=== PATIENT | female | born 1965 | race Caucasian/White ===

== ENCOUNTER 2024-10-07 05:41 | Inpatient (IN) ==
[2024-10-07 06:16] LABS: Basophils # (auto) 0.05 K/uL (0.00-0.20); Basophils % (auto) 0.8 %; Eosinophils # (auto) 0.13 K/uL (0.00-0.50); Hematocrit (blood only) 41.1 % (37.0-47.0); Hemoglobin 14.8 g/dl (12.0-16.0); Immature Granulocytes # (auto) 0.02 K/uL (0.01-0.20); Immature Granulocytes % (auto) 0.3 %; Lymphocytes # (auto) 1.16 K/uL (1.20-3.40); Lymphocytes % (auto) 18.2 %; Mean Corpuscular Hemoglobin 31.5 pg (25.0-34.0); Mean Corpuscular Volume 87.4 fL (80.0-100.0); Mean Platelet Volume 10.6 fL (9.4-12.4); Monocytes # (auto) 0.53 K/uL (0.11-0.59); Monocytes % (auto) 8.3 %; Neutrophils # (auto) 4.47 K/uL (1.40-6.50); Neutrophils % (auto) 70.4 %; Platelet Count 216 K/uL (130-400); RDW Coefficient of Variation 12.2 % (11.5-14.5); RDW Standard Deviation 39.2 fL (36.4-46.3); White Blood Count 6.36 K/ul (4.8-10.8)
[2024-10-07 06:46] LABS: Alanine Aminotransferase 133 U/L (7-52); Albumin Globulin Ratio 2.6 (0.9-2); Albumin Level 4.6 gm/dl (3.4-5.0); Alkaline Phosphatase 68 U/L (34-104); Aspartate Aminotransferase 170 U/L (13-39); BUN Creatinine Ratio 21.4 (10-20); Bilirubin,Total 0.9 mg/dl (0.2-1.0); Blood Urea Nitrogen 15 mg/dl (6-23); Calcium 9.9 mg/dl (8.6-10.3); Carbon Dioxide > 45 mmol/L (21-32); Chloride 91 mmol/L (98-107); Creatinine Clr Calc Pharmacy 77.9 ml/min; Globulin 1.8 gm/dl (2.5-4.0); Glucose 137 mg/dl (70-99(Fasting)); Magnesium 2.2 mg/dl (1.7-2.4); Potassium 2.4 mmol/L (3.5-5.1); Sodium 144 mmol/L (136-145); Thyroid Stimulating Hormone 1.899 uIu/ml (0.300-4.500); Total Protein 6.4 gm/dl (6.0-8.3); Troponin I High Sensitivity 9.5 pg/ml (0-14)
--- NOTE | 2024-10-07 06:47 | Emergency Department Note ---
Impression & Plan Metabolic alkalosis, Hypokalemia, Hypercapnia, Hypochloremic alkalosis, Adverse effect of thiazide diuretic, Muscle cramps, Rhabdomyolysis ED Provider Note NAME: NANCY THOMAS AGE: 58 SEX: F : 1965 ARRIVES VIA: Walk-In INFORMANT: Patient ED PROVIDER(S): Herbert Romero MD CHIEF COMPLAINT: Low potassium, referred. PLAN: Disposition: Admit MEDICAL DECISION MAKING: The patient is a pleasant 58-year-old woman with past medical history of hypertension who presents to the emergency department via walk-in accompanied by her who is a physician for evaluation of low potassium which was identified on outpatient blood work drawn yesterday but a critical value was communicated to her PCP office around 4 AM where they contact her to present to emergency department immediately for severely low potassium that their lab had measured below 2.0. Patient reports she had blood work performed to assess for ongoing constant muscle aches and pain over the past several weeks in the setting of starting chlorthalidone a month ago. Patient denies any chest pain, shortness of breath, palpitations. Denies any recent fevers, chills, cough, congestion, GI or symptoms. She denies history of lung disease. Of note, the patient did arrive to emergency department during time of high volume, acuity and prolonged emergency department waiting times. Critical pathways initiated. On evaluation the patient is in no acute distress, afebrile with blood pressure in the 150/80s and vital signs otherwise stable. She appears clinically dry. Reflexes are 2+. There is no clonus. EKG demonstrates NSR with nonspecific ST and T wave abnormalities without overt ST elevation or depression. QTc 438, QRS 100. WBC, H/H and platelets within normal limits. Chemistry with significant metabolic alkalosis with bicarbonate >45. Chloride is low at 91 and so suggestive of hypochloremic metabolic alkalosis with associated hypokalemia of 2.4 likely related to the patient's chlorthalidone. Sodium is normal 144. Magnesium and calcium are normal at 2.2 and 9.9, respectively. AST and ALT are mildly elevated 170 and 133, respectively with LFTs otherwise normal. High- sensitivity troponin 9.5, within normal limits. TSH within normal limits. VBG, CPK and repeat BMP ordered and pending. Given the patient's significant metabolic/ill electrolyte abnormalities they do agree with plan for admission for further management. Case was reviewed with pharmacy. Agrees with initiation of IV fluid hydration and KCl repletion at this time. Case was d/w Dr. Cast [facility] hospitalist who will evaluate the patient for admission. Repeat BMP with bicarbonate detectable 44. Potassium 2.3. CPK subsequently returned elevated at 2400. Admitting team aware. Further management per admitting team. Triage Nursing notes reviewed and agree them. Prior/external medical records reviewed Vital Signs: reviewed Differential diagnosis: Infection, dehydration, metabolic abnormality, hypo/hyperglycemia, electrolyte disturbance, anemia, hypoxia, cardiac sources, intracerebral event, toxicologic, neurologic, as well as other pathologies. ER treatment provided: See below. Diagnostics interpreted by me: ECG: Normal sinus rhythm, 70 bpm, no ectopy, ST and T wave abnormality, no overt ST elevation or depression, QTc 438, QRS 100. Cardiac Monitoring: An order for continuous cardiac monitoring was placed and demonstrated Normal sinus rhythm, 70 bpm, no ectopy. Laboratory studies: See below Imaging studies: See below Consultation(s): Dr. Cast [facility] [place] hospitalist. HPI: The patient is a pleasant 58-year-old woman with past medical history of hypertension who presents to the emergency department via walk-in accompanied by her who is a physician for evaluation of low potassium which was identified on outpatient blood work drawn yesterday but a critical value was communicated to her PCP office around 4 AM where they contact her to present to emergency department immediately for severely low potassium that their lab had measured below 2.0. Patient reports she had blood work performed to assess for ongoing constant muscle aches and pain over the past several weeks in the setting of starting chlorthalidone a month ago. Patient denies any chest pain, shortness of breath, palpitations. Denies any recent fevers, chills, cough, congestion, GI or symptoms. She denies history of lung disease. ROS: See above HPI for pertinent positives & negatives. A total of 10 systems reviewed and were otherwise negative. VITALS:See Below PHYSICAL EXAMINATION: GENERAL: Awake, alert, well-appearing, in no distress HENT: Normocephalic, atraumatic. Oropharynx with dry mucous membranes and otherwise unremarkable. EYES: Normal conjunctiva. Sclera non-icteric. NECK: Supple. No nuchal rigidity. FROM. No JVD. RESPIRATORY: Clear to auscultation. CARDIAC: Regular rate, normal rhythm. Extremities warm and well perfused. Pulses equal. ABDOMEN: Soft, non-distended. No tenderness to palpation. No rebound or guarding. No masses. MUSCULOSKELETAL: Chest examination reveals no tenderness. The back is symmetrical on inspection without obvious abnormality. There is no CVA tenderness to palpation. No joint edema. LOWER EXTREMITIES: Calves are equal size bilaterally and non-tender. No edema. No discoloration. NEURO: Normal sensorium. No sensory or motor deficits noted. DTRs 2+. No clonus. SKIN: No rash or jaundice noted. Herbert Romero MD Past Med/Surg History Problem List (Updated 10/07/24 @ 16:06 by Herbert Romero MD) Rhabdomyolysis (Acute) Muscle cramps (Acute) Adverse effect of thiazide diuretic (Acute) Hypochloremic alkalosis (Acute) Metabolic alkalosis (Acute) Transaminitis Anxiety Hypertension Hypercapnia (Acute) Hypokalemia (Acute) Colon cancer screening Encounter for pre-operative examination Encounter for screening colonoscopy Medical History Spondylisthesis lumbar Surgical History History of colonoscopy (~10/2019) History of hysterectomy vaginal Fusion of spine lumbar area S/P foot surgery left foot (tendon transfer) with screws Family History Other No family history of adverse response to anesthesia Social History Smoking Status: Never smoker Second Hand Exposure: No; Do You Dip or Chew Tobacco: No; Hx Alcohol Use: Yes Alcohol type: wine Hx Substance Use: No Preferred Language: Malay Communication Ability: Effective Copy Messenger Required: No Beliefs That Will Affect Care: None Current Living Situation: Spouse Other Information That Helps Us Care for You: No Feels Safe at Home: Yes Safety Concerns: Feels Safe At This Time Assistive Devices: None Allergies Allergies Allergy/AdvReac Type Severity Reaction Status Date / Time egg yolk Allergy Intermediate Hives Verified 12/10/21 07:33 Sulfa (Sulfonamide Allergy Intermediate Hives Verified 12/10/21 07:33 Antibiotics) Home Meds Home Medications Medication Instructions Recorded Confirmed amitriptyline 10 mg tablet 20 mg PO HS 10/18/19 10/07/24 escitalopram oxalate 20 mg tablet 20 mg PO QAM 10/18/19 12/17/21 (Lexapro) [id number] 0.4 mg-calcium 162 1 tab PO QAM 11/15/20 10/07/24 mg-iron 18 [id number] tablet amlodipine 5 mg tablet 5 mg PO DAILY 10/07/24 10/07/24 chlorthalidone 25 mg tablet 25 mg PO DAILY 10/07/24 10/07/24 gabapentin 300 mg capsule 600 mg PO BID 10/07/24 10/07/24 lisinopril 30 mg tablet 30 mg PO DAILY 10/07/24 10/07/24 tretinoin 0.025 % topical cream See Rx Instructions .Route .COMPLEX 10/07/24 10/07/24 Results & Data (ED) Vital Signs Vital Signs - 24 hr 10/07/24 05:47 10/07/24 06:02 10/07/24 06:02 Temperature 36.7 C Temperature Source Temporal Artery Scan Pulse Rate 76 66 Pulse Rate [Right Finger] 64 Pulse Rate from SpO2 Sensor Pulse Rhythm [Right Finger] Irregular Pulse Strength [Right Finger] Normal Respiratory Rate 18 23 Respiratory Effort / Characteristics Non-Labored Spontaneous Non-Labored Spontaneous Respiratory Depth Normal Normal Respiratory Pattern Regular Blood Pressure 139/83 Blood Pressure [Right Arm] 134/72 Blood Pressure Mean 101 Blood Pressure Mean [Right Arm] 92 Blood Pressure Position [Right Arm] Lying Pulse Oximetry 97 95 Oxygen Delivery Method Room Air Room Air Sepsis Recent Fever Within 48 Hours No Sepsis New/Unexplained Change in Mental Status No Sepsis Action Taken by Nursing No Action Required 10/07/24 07:00 10/07/24 07:03 10/07/24 07:30 Temperature Temperature Source Pulse Rate 67 63 Pulse Rate [Right Finger] 65 Pulse Rate from SpO2 Sensor 67 63 Pulse Rhythm [Right Finger] Regular Pulse Strength [Right Finger] Respiratory Rate 18 20 20 Respiratory Effort / Characteristics Non-Labored Respiratory Depth Normal Respiratory Pattern Regular Blood Pressure 151/84 H 157/89 H Blood Pressure [Right Arm] 151/84 H Blood Pressure Mean 106 111 Blood Pressure Mean [Right Arm] 106 Blood Pressure Position [Right Arm] Pulse Oximetry 99 97 94 Oxygen Delivery Method Room Air Sepsis Recent Fever Within 48 Hours Sepsis New/Unexplained Change in Mental Status Sepsis Action Taken by Nursing 10/07/24 08:18 Temperature Temperature Source Pulse Rate 63 Pulse Rate [Right Finger] Pulse Rate from SpO2 Sensor 64 Pulse Rhythm [Right Finger] Pulse Strength [Right Finger] Respiratory Rate 16 Respiratory Effort / Characteristics Respiratory Depth Respiratory Pattern Blood Pressure 148/86 H Blood Pressure [Right Arm] Blood Pressure Mean 106 Blood Pressure Mean [Right Arm] Blood Pressure Position [Right Arm] Pulse Oximetry 96 Oxygen Delivery Method Sepsis Recent Fever Within 48 Hours Sepsis New/Unexplained Change in Mental Status Sepsis Action Taken by Nursing Laboratory Data Attestation: I reviewed the patient's lab results. 10/07/24 05:58 10/07/24 14:26 Lab Results 10/07/24 10/07/24 Range/Units 05:58 08:39 WBC 6.36 (4.8-10.8) K/ul RBC 4.70 (4.20-5.40) M/uL Hgb 14.8 (12.0-16.0) g/dl Hct 41.1 (37.0-47.0) % MCV 87.4 (80.0-100.0) fL MCH 31.5 (25.0-34.0) pg MCHC 36.0 (32.0-36.0) g/dL RDW Std Deviation 39.2 (36.4-46.3) fL RDW Coeff of Nilesh 12.2 (11.5-14.5) % Plt Count 216 (130-400) K/uL MPV 10.6 (9.4-12.4) fL Immature Gran % (Auto) 0.3 % Neut % (Auto) 70.4 % Lymph % (Auto) 18.2 % Rogers % (Auto) 8.3 % Eos % (Auto) 2.0 % Baso % (Auto) 0.8 % Neut # (Auto) 4.47 (1.40-6.50) K/uL Lymph # (Auto) 1.16 L (1.20-3.40) K/uL Rogers # (Auto) 0.53 (0.11-0.59) K/uL Eos # (Auto) 0.13 (0.00-0.50) K/uL Baso # (Auto) 0.05 (0.00-0.20) K/uL Immature Gran # (Auto) 0.02 (0.01-0.20) K/uL Sodium 144 (136-145) mmol/L Potassium 2.4 L* (3.5-5.1) mmol/L Chloride 91 L (98-107) mmol/L Carbon Dioxide > 45 H* (21-32) mmol/L Anion Gap TNP BUN 15 (6-23) mg/dl Creatinine 0.70 (0.6-1.2) mg/dl Est Cr Clr Drug Dosing 77.9 ml/min eGFR 101.44 BUN/Creatinine Ratio 21.4 H (10-20) Glucose 137 H (70-99(Fasting)) mg/dl Calcium 9.9 (8.6-10.3) mg/dl Magnesium 2.2 (1.7-2.4) mg/dl Total Bilirubin 0.9 (0.2-1.0) mg/dl AST 170 H (13-39) U/L ALT 133 H (7-52) U/L Alkaline Phosphatase 68 (34-104) U/L Troponin I High Sens 9.5 (0-14) pg/ml Total Protein 6.4 (6.0-8.3) gm/dl Albumin 4.6 (3.4-5.0) gm/dl Globulin 1.8 L (2.5-4.0) gm/dl Albumin/Globulin Ratio 2.6 H (0.9-2) TSH 1.899 (0.300-4.500) uIu/ml Urine Color Yellow Urine Appearance Clear (Clear) Urine pH 7.5 (4.5-7.5) Ur Specific [place] 1.006 (1.000-1.030) Urine Protein Negative (Negative) Urine Glucose (UA) Negative (Negative) Urine Ketones Negative (Negative) Urine Blood Negative (Negative) Urine Nitrite Negative (Negative) Urine Bilirubin Negative (Negative) Urine Urobilinogen Negative (Negative) Ur Leukocyte Esterase Negative (Negative) Ur Random Chloride 18 mmol/L Administered Medications Amlodipine Besylate (Amlodipine Besylate 5 Mg Tab) 5 mg PO DAILY [facility] Stop: 11/06/24 12:29 Last Admin: 10/07/24 13:35 Dose: 5 mg Documented By: FLOR Escitalopram Oxalate (Escitalopram Oxalate 20 Mg Tab) [facility] [place]: 11/06/24 12:59 Last Admin: 10/07/24 13:35 Dose: 20 mg Documented By: FLOR Gabapentin (Gabapentin 300 Mg Cap) 600 mg PO BID TANYA Stop: 11/06/24 12:29 Last Admin: 10/07/24 13:35 Dose: 600 mg Documented By: FLOR Lisinopril (Lisinopril 10 Mg Tab) 30 mg PO DAILY [facility] Stop: 11/06/24 12:29 Last Admin: 10/07/24 13:35 Dose: 30 mg Documented By: FLOR Miscellaneous (Tretinoin 0.025% Cream Order Awaiting Action) 1 each N/A QS TANYA Stop: 11/06/24 15:59 Last Admin: 10/07/24 14:19 Dose: Not Given Documented By: FLOR Discontinued Medications Sodium Chloride (Nss) 1,000 mls @ 999 mls/hr IV .Q1H1M ONE Stop: 10/07/24 08:33 Last Infusion: 10/07/24 10:56 Dose: Infused Documented By: FLOR(2) Admin: 10/07/24 08:37 Dose: 999 mls/hr Documented By: FLOR(2) Potassium Chloride (K Johnnie / Wtr) 10 meq in 100 mls @ 100 mls/hr IV Q1H TANYA Stop: 10/07/24 09:44 Last Infusion: 10/07/24 10:30 Dose: Infused Documented By: FLOR(2) Admin: 10/07/24 09:36 Dose: 100 mls/hr Documented By: FLOR(2) Infusion: 10/07/24 09:36 Dose: Infused Documented By: FLOR(2) Admin: 10/07/24 08:38 Dose: 100 mls/hr Documented By: FLOR(2) Potassium Chloride (K Johnnie / Wtr) 10 meq in 100 mls @ 100 mls/hr IV Q1H TANYA Stop: 10/07/24 11:44 Last Infusion: 10/07/24 12:57 Dose: Infused Documented By: Admin: 10/07/24 11:53 Dose: 100 mls/hr Documented By: Infusion: 10/07/24 11:30 Dose: Infused Documented By: Admin: 10/07/24 10:30 Dose: 100 mls/hr Documented By: FLOR(2) Potassium Chloride (Potassium Chloride Crtab 20 Meq Tabcr) 40 meq PO NOW STA Stop: 10/07/24 08:41 Last Admin: 10/07/24 09:06 Dose: 40 meq Documented By: FLOR(2) Potassium Chloride (Potassium Chloride Crtab 20 Meq Tabcr) 40 meq PO NOW STA Stop: 10/07/24 13:04 Last Admin: 10/07/24 13:55 Dose: 40 meq Documented By: FLOR Discharge Plan Visit Data Chief Complaint: Abnormal Labs/Diagnostic Testing Stated Complaint: REF BY DOC FOR LOW POTASSIUM ED Provider: Herbert Romero Discharge Problem: Metabolic alkalosis, Hypokalemia, Hypercapnia, Hypochloremic alkalosis, Adverse effect of thiazide diuretic, Muscle cramps, Rhabdomyolysis Patient Disposition: Admitted As Inpatient Discharge Instructions Interventions: ED Discharge Assessment Last Done: 10/07/24 11:30 Discharge Problem: Adverse effect of thiazide diuretic Qualifiers: Encounter type: initial encounter Qualified Code(s): T50.2X5A - Adverse effect of carbonic-anhydrase inhibitors, benzothiadiazides and other diuretics, initial encounter Rhabdomyolysis Qualifiers: Rhabdomyolysis type: non-traumatic Qualified Code(s): M62.82 - Rhabdomyolysis
--- NOTE | 2024-10-07 08:27 | History & Physical Report ---
Date of Service October 07, 2024 Assessment & Plan (1) Hypokalemia: (2) Hypercapnia: (3) Transaminitis: (4) Hypertension: (5) Anxiety: (6) Metabolic alkalosis: Plan Patient is a 58-year-old female with a past medical history of hypertension, anxiety, depression. She was referred by her doctor after her blood work showed a low potassium of 2.4. She is being admitted for hypokalemia secondary to diuretic use; labs also showed hypercapnia, VBG ordered on admission. #hypokalemia 2/2 Chlorthalidone use K+ 2.4 on admission Mg 2.2, TSH WNL, renal function stable EKG showed t wave inversions in all leads - troponin negative Total 40 mEq IV given on admission Additional 40 mEq p.o. ordered Recheck BMP at 1400 hold chlorthalidone Trend Mg and BMP Monitor on telemetry for any other arrhythmias #hypercapnia/ metabolic alkalosis CO2 >45 on admission CMP 2/2 hypokalemia VBG - 7.49/63/48 anticipate to improve with K+ repletion repeat VBG with AM labs #Transaminitis AST 170, ALT 133 Alk phos and bilirubin WNL Denies abdominal pain Trend CMP #HTN Continue amlodipine and lisinopril Holding chlorthalidone as electrolyte abnormalities above Would consider further workup as to secondary causes of hypertension in outpatient setting #Anxiety Continue amitriptyline VTE ppx: SCDs - low risk and able to ambulate Diet: Regular Dispo: PCU Admission and Anticipated Discharge Date Admission Date: 10/07/24 History of Present Illness Chief Complaint: abnormal labs Primary Care Provider: Joo Mcgovern Patient is a 58-year-old female with a past medical history of hypertension, anxiety, depression. She was referred by her doctor after her blood work showed a low potassium of 2.4. She is being admitted for hypokalemia; labs also showed hypercapnia, VBG ordered on admission. Patient seen at bedside with her present who is a physician for the residency program in [place]. She stated she has had muscle cramps for approximately a week states she had blood work done with her PCP yesterday which showed hypokalemia. She immediately came into the ER when she received a phone call from the lab at 4 AM this morning. Patient denies dizziness, lightheadedness, dyspnea, chest pain, palpitations, abdominal pain, nausea, vomiting, diarrhea, numbness, tingling. She has been receiving treatment for high blood pressure since the fall, seems to be uncontrolled and not on responsive to multiple medications. Patient is currently on amlodipine, lisinopril, and started chlorthalidone in June. She has not undergone any further workup as to secondary causes of hypertension. She does not use nicotine products or drink alcohol. She denies past history of cancer, diabetes, previous VTE. She did not take her home medications prior to arrival; ordered on admission. She wishes to be full code at this time. Allergies Allergy/AdvReac Type Severity Reaction Status Date / Time egg yolk Allergy Intermediate Hives Verified 12/10/21 07:33 Sulfa (Sulfonamide Allergy Intermediate Hives Verified 12/10/21 07:33 Antibiotics) Home Medications Medication Instructions Recorded Confirmed Type amitriptyline 10 mg tablet 20 mg PO HS 10/18/19 10/07/24 History escitalopram oxalate 20 mg tablet 20 mg PO QAM 10/18/19 12/17/21 History (Lexapro) [id number] 0.4 mg-calcium 162 1 tab PO QAM 11/15/20 10/07/24 History mg-iron 18 [id number]-[id number]-[id number] tablet amlodipine 5 mg tablet 5 mg PO DAILY 10/07/24 10/07/24 History gabapentin 300 mg capsule 600 mg PO BID 10/07/24 10/07/24 History lisinopril 30 mg tablet 30 mg PO DAILY 10/07/24 10/07/24 History tretinoin 0.025 % topical cream See Rx Instructions .Route .COMPLEX 10/07/24 10/07/24 History potassium chloride 20 mEq 40 meq (2 x 20 mEq) PO BID #6 tabs 10/10/24 Rx tablet,extended release(part/cryst) Past Med/Surg History Problem List (Updated 10/07/24 @ 16:06 by Herbert Romero MD) Rhabdomyolysis (Acute) Muscle cramps (Acute) Adverse effect of thiazide diuretic (Acute) Hypochloremic alkalosis (Acute) Metabolic alkalosis (Acute) Transaminitis Anxiety Hypertension Hypercapnia (Acute) Hypokalemia (Acute) Colon cancer screening Encounter for pre-operative examination Encounter for screening colonoscopy Medical History Spondylisthesis lumbar Surgical History History of colonoscopy (~10/2019) History of hysterectomy vaginal Fusion of spine lumbar area S/P foot surgery left foot (tendon transfer) with screws Family History Other No family history of adverse response to anesthesia Social History Smoking Status: Never smoker Second Hand Exposure: No; Do You Dip or Chew Tobacco: No; Hx Alcohol Use: Yes Alcohol type: wine Hx Substance Use: No Preferred Language: Greek Communication Ability: Effective Java User Interface Developer Required: No Beliefs That Will Affect Care: None Current Living Situation: Spouse Feels Safe at Home: Yes Assistive Devices: None Review of Systems Review of Systems: see HPI Physical Exam Physical Exam: The patient is awake, alert and oriented 3, well developed and well nourished, normocephalic and atraumatic, in no acute distress. Non-toxic appearing. HEENT- EOMI, mucous membranes moist. Hearing grossly intact. Heart-normal S1 and S2. No murmurs, rubs or gallops. Lungs-clear bilaterally, no respiratory distress, no accessory muscle use. Abdomen-normal bowel sounds and soft. No ascites noted. Non-tender. Extremities- no clubbing, cyanosis, or edema. Rheumatologic-normal range of motion. Psychiatric-normal affect. Constitutional: WD/WN, vitals as above Musculoskeletal: no cyanosis or clubbing, extremities motor strength 5/5 Results & Data Results & Data Vital Signs (Past 12 Hours) Vital Signs Temp Pulse Pulse Resp BP BP Pulse Ox 10/07/24 07:00 65 18 151/84 H 99 10/07/24 06:02 66 10/07/24 06:02 64 23 134/72 95 10/07/24 05:47 36.7 C 76 18 139/83 97 O2 Del Method 10/07/24 07:00 Room Air 10/07/24 06:02 10/07/24 06:02 Room Air 10/07/24 05:47 Room Air Laboratory Results Reviewed CBC, CMP, TSH Medications Administered ED 1L NSS, 20 MeQ IV k+ ECG Additional Comments: ordered Code Status & VTE Plan VTE Prophylaxis Plan VTE Prophylaxis will be ordered: Yes Supervising Physician Co-Signing Physician Notes During face to face encounter, I obtained a history and physical examination, discussed plan of care with patient and answered her questions. I discussed plan of care with LINDA Landaverde. I reviewed above note and agree with it except for the following: Patient admitted with hypokalemia. will hold chlorthalidone and will place on IV supplementation. Will closely monitor patient. will check CK as AST/ALT are elevated PG Care Time/CCT Total # of Minutes Spent Total Time Spent with Patient: Total time spent is greater than 50% in coordination of care (as documented) at patient's floor/unit and/or counseling patient: Coding Level of Care Code 36470 INT INP/OBS CARE 3/75MIN Diagnoses Hypokalemia E87.6 Hypercapnia R06.89 Transaminitis R74.01 Hypertension I10 Anxiety F41.9 Metabolic alkalosis E87.3
[2024-10-07] MEDS: SODIUM CHLORIDE 0.9% 1,000 ML IV ONE (08:37)
[2024-10-07] MEDS: POTASSIUM CHLORIDE / WTR 10 MEQ/100 ML PLCT IV SCH ×3 (08:38→18:22)
[2024-10-07 08:57] LABS: Appearance Urine Clear (Clear); Bilirubin Urine Negative (Negative); Blood Urine Negative (Negative); Color Urine Yellow; Glucose Urine UA Negative (Negative); Ketones Urine Negative (Negative); Leukocyte Esterase Urine Negative (Negative); Nitrite Urine Negative (Negative); Protein Urine Negative (Negative); Specific Gravity Urine 1.006 (1.000-1.030); Urobilinogen Urine Negative (Negative); pH Urine 7.5 (4.5-7.5)
[2024-10-07] MEDS: POTASSIUM CHLORIDE CRTAB 20 MEQ TABCR PO STA ×3 (09:06→16:41)
[2024-10-07 11:00] LABS: Base Excess VBG 20.8 mEq/L; HCO3 VBG 48 mmol/L; Oxygen Saturation VBG < 60.0 %; PCO2 VBG 63 mmHg (38-50); PO2 VBG 31 mmHg; pH VBG 7.49 (7.36-7.41)
[2024-10-07 11:28] LABS: BUN Creatinine Ratio 21.8 (10-20); Calcium 8.8 mg/dl (8.6-10.3); Creatinine Clr Calc Pharmacy 99.2 ml/min; Potassium 2.3 mmol/L (3.5-5.1)
[2024-10-07] MEDS ORDERED: MELATONIN 3 MG TAB PO PRN (11:58)
[2024-10-07] MEDS ORDERED: DOCUSATE SODIUM 100 MG CAP PO PRN (11:58)
[2024-10-07] MEDS ORDERED: ACETAMINOPHEN 325 MG TAB PO PRN (11:58)
[2024-10-07] MEDS: lisinopril 10 MG TAB PO SCH (13:35)
[2024-10-07] MEDS: GABAPENTIN 300 MG CAP PO SCH (13:35)
[2024-10-07] MEDS: amLODIPine BESYLATE 5 MG TAB PO SCH (13:35)
[2024-10-07] MEDS: ESCITALOPRAM OXALATE 20 MG TAB PO SCH (13:35)
--- NOTE | 2024-10-07 13:46 | Electrocardiogram Report ---
Test Reason : Blood Pressure : */* mmHG Vent. Rate : 70 BPM Atrial Rate : 70 BPM P-R Int : 168 ms QRS Dur : 100 ms QT Int : 406 ms P-R-T Axes : 76 86 230 degrees QTcB Int : 438 ms Normal sinus rhythm Possible Left atrial enlargement Abnormal ECG No previous ECGs available Confirmed by Ariel Salgado ([id number]) on 10/07/2024 1:45:35 PM Referred By: Joo Mcgovern Confirmed By: Ariel Salgado
[2024-10-07 15:19] LABS: BUN Creatinine Ratio 15.5 (10-20); Calcium 8.9 mg/dl (8.6-10.3); Creatinine Clr Calc Pharmacy 64.9 ml/min; Phosphorus 2.9 mg/dl (2.5-4.9); Potassium 2.3 mmol/L (3.5-5.1)
[2024-10-07] MEDS: POTASSIUM CHLORIDE 40 MEQ in SODIUM CHLORIDE 0.9% 1,000 ML IV SCH (17:20)
[2024-10-07] MEDS: AMITRIPTYLINE HCL 10 MG TAB PO SCH (22:13)
[2024-10-08 05:50] LABS: Base Excess VBG 16.5 mEq/L; HCO3 VBG 43 mmol/L; Oxygen Saturation VBG 77.1 %; PCO2 VBG 56 mmHg (38-50); PO2 VBG 44 mmHg; pH VBG 7.49 (7.36-7.41)
[2024-10-08 05:57] LABS: Basophils # (auto) 0.03 K/uL (0.00-0.20); Basophils % (auto) 0.7 %; Eosinophils # (auto) 0.13 K/uL (0.00-0.50); Eosinophils % (auto) 3.2 %; Hematocrit (blood only) 37.2 % (37.0-47.0); Hemoglobin 13.1 g/dl (12.0-16.0); Immature Granulocytes # (auto) 0.01 K/uL (0.01-0.20); Immature Granulocytes % (auto) 0.2 %; Lymphocytes # (auto) 1.05 K/uL (1.20-3.40); Lymphocytes % (auto) 26.1 %; Mean Corpuscular Hgb Conc 35.2 g/dL (32.0-36.0); Mean Corpuscular Volume 87.9 fL (80.0-100.0); Mean Platelet Volume 10.5 fL (9.4-12.4); Monocytes # (auto) 0.36 K/uL (0.11-0.59); Neutrophils # (auto) 2.44 K/uL (1.40-6.50); Neutrophils % (auto) 60.8 %; Platelet Count 179 K/uL (130-400); RDW Coefficient of Variation 12.4 % (11.5-14.5); RDW Standard Deviation 39.6 fL (36.4-46.3); Red Blood Count 4.23 M/uL (4.20-5.40); White Blood Count 4.02 K/ul (4.8-10.8)
[2024-10-08 06:20] LABS: Albumin Globulin Ratio 2.2 (0.9-2); Albumin Level 3.8 gm/dl (3.4-5.0); BUN Creatinine Ratio 21.7 (10-20); Bilirubin,Total 0.7 mg/dl (0.2-1.0); Calcium 8.5 mg/dl (8.6-10.3); Creatinine Clr Calc Pharmacy 125.5 ml/min; Globulin 1.7 gm/dl (2.5-4.0); Potassium 2.7 mmol/L (3.5-5.1); Total Protein 5.5 gm/dl (6.0-8.3)
[2024-10-08] MEDS: POTASSIUM CHLORIDE CRTAB 20 MEQ TABCR PO SCH (08:20)
[2024-10-08] MEDS: POTASSIUM CHLORIDE / WTR 10 MEQ/100 ML PLCT IV SCH ×2 (08:20→15:25)
[2024-10-08] MEDS: POTASSIUM CHLORIDE 40 MEQ in SODIUM CHLORIDE 0.45 % 1,000 ML IV SCH (09:09)
[2024-10-08 22:11] LABS: BUN Creatinine Ratio 23.1 (10-20); Calcium 8.2 mg/dl (8.6-10.3); Potassium 2.9 mmol/L (3.5-5.1)
--- NOTE | 2024-10-08 23:51 | Hospitalist Progress Note ---
Date of Service October 08, 2024 Assessment & Plan (1) Hypokalemia: (2) Hypercapnia: (3) Transaminitis: (4) Hypertension: (5) Anxiety: (6) Metabolic alkalosis: Plan Patient is a 58-year-old female with a past medical history of hypertension, anxiety, depression. She was referred by her doctor after her blood work showed a low potassium of 2.4. She is being admitted for hypokalemia secondary to diuretic use; labs also showed hypercapnia, VBG ordered on admission. #hypokalemia 2/2 Chlorthalidone use K+ 2.4 on admission Mg 2.2, TSH WNL, renal function stable EKG showed t wave inversions in all leads - troponin negative Total 40 mEq IV given on admission Additional 40 mEq p.o. ordered Recheck BMP at 1400 hold chlorthalidone concern this is due to hyperaldosteronism. ordered levels but these are send outs. Patient has required 16 10 meq riders of potassium as well as 120 mew PO of potassium daily during her short hospital stay and her postassium remains low and below 3. Rhabdomyolysis: Over 2k, increased IVF. added potasium to the IVF. will continue to monitor. #hypercapnia/ metabolic alkalosis CO2 >45 on admission CMP 2/2 hypokalemia VBG - 7.49/63/48 anticipate to improve with K+ repletion repeat VBG with AM labs #Transaminitis AST 170, ALT 133 Alk phos and bilirubin WNL Denies abdominal pain Trend CMP #HTN Continue amlodipine and lisinopril Holding chlorthalidone as electrolyte abnormalities above Would consider further workup as to secondary causes of hypertension in outpatient setting #Anxiety Continue amitriptyline VTE ppx: SCDs - low risk and able to ambulate Diet: Regular Dispo: PCU Admission and Anticipated Discharge Date Admission Date: October 07, 2024 Subjective Patient reports doing well. She has no new complaints. Physical Exam Constitutional: WD/WN, vitals as above Musculoskeletal: no cyanosis or clubbing, extremities motor strength 5/5 Results & Data Results & Data Vital Signs (Past 12 Hours) Vital Signs Temp Pulse Resp BP Pulse Ox O2 Del Method 10/08/24 22:58 36.8 C 98 H 18 146/72 H 97 Room Air 10/08/24 19:35 36.6 C 60 19 153/74 H 96 Room Air 10/08/24 19:30 Room Air 10/08/24 15:52 36.8 C 65 18 149/82 H 97 Room Air PG Care Time/CCT Total # of Minutes Spent Total Time Spent with Patient: Total time spent is greater than 50% in coordination of care (as documented) at patient's floor/unit and/or counseling patient: Coding Level of Care Code 52503 SUB INP/OBS CARE 3/50MIN Diagnoses Hypokalemia E87.6 Hypercapnia R06.89 Transaminitis R74.01 Hypertension I10 Anxiety F41.9 Metabolic alkalosis E87.3
[2024-10-09 02:40] LABS: BUN Creatinine Ratio 23.5 (10-20); Calcium 8.7 mg/dl (8.6-10.3); Creatinine Clr Calc Pharmacy 169.7 ml/min; Potassium 3.3 mmol/L (3.5-5.1)
[2024-10-09 07:42] LABS: Basophils # (auto) 0.02 K/uL (0.00-0.20); Basophils % (auto) 0.5 %; Eosinophils # (auto) 0.14 K/uL (0.00-0.50); Eosinophils % (auto) 3.5 %; Hematocrit (blood only) 37.9 % (37.0-47.0); Hemoglobin 13.3 g/dl (12.0-16.0); Immature Granulocytes # (auto) 0.01 K/uL (0.01-0.20); Immature Granulocytes % (auto) 0.2 %; Lymphocytes # (auto) 0.91 K/uL (1.20-3.40); Lymphocytes % (auto) 22.7 %; Mean Corpuscular Hemoglobin 31.1 pg (25.0-34.0); Mean Corpuscular Hgb Conc 35.1 g/dL (32.0-36.0); Mean Corpuscular Volume 88.8 fL (80.0-100.0); Mean Platelet Volume 10.8 fL (9.4-12.4); Monocytes # (auto) 0.29 K/uL (0.11-0.59); Monocytes % (auto) 7.2 %; Neutrophils # (auto) 2.64 K/uL (1.40-6.50); Neutrophils % (auto) 65.9 %; Platelet Count 177 K/uL (130-400); RDW Coefficient of Variation 12.4 % (11.5-14.5); Red Blood Count 4.27 M/uL (4.20-5.40); White Blood Count 4.01 K/ul (4.8-10.8)
[2024-10-09 07:56] LABS: Albumin Globulin Ratio 2.4 (0.9-2); BUN Creatinine Ratio 16.7 (10-20); Bilirubin,Total 0.8 mg/dl (0.2-1.0); Creatinine Clr Calc Pharmacy 135.1 ml/min; Globulin 1.7 gm/dl (2.5-4.0); Magnesium 1.8 mg/dl (1.7-2.4); Potassium 3.3 mmol/L (3.5-5.1); Total Protein 5.7 gm/dl (6.0-8.3)
[2024-10-09] MEDS ORDERED: Nursing to Pharmacy Communication SCH (09:00)
[2024-10-09] MEDS: POTASSIUM CHLORIDE 40 MEQ in SODIUM CHLORIDE 0.45 % 1,000 ML IV SCH (10:39)
[2024-10-09 14:55] LABS: BUN Creatinine Ratio 17.9 (10-20); Calcium 8.3 mg/dl (8.6-10.3); Creatinine Clr Calc Pharmacy 84.7 ml/min; Potassium 3.1 mmol/L (3.5-5.1)
[2024-10-09] MEDS: POTASSIUM CHLORIDE / WTR 10 MEQ/100 ML PLCT IV SCH (15:55)
--- NOTE | 2024-10-09 23:25 | Hospitalist Progress Note ---
Date of Service October 09, 2024 Assessment & Plan (1) Hypokalemia: (2) Hypercapnia: (3) Transaminitis: (4) Hypertension: (5) Anxiety: (6) Metabolic alkalosis: Plan Patient is a 58-year-old female with a past medical history of hypertension, anxiety, depression. She was referred by her doctor after her blood work showed a low potassium of 2.4. She is being admitted for hypokalemia secondary to diuretic use; labs also showed hypercapnia, VBG ordered on admission. #hypokalemia 2/2 Chlorthalidone use K+ 2.4 on admission Mg 2.2, TSH WNL, renal function stable EKG showed t wave inversions in all leads - troponin negative hold chlorthalidone concern this is due to hyperaldosteronism: labs are sent outs and are pending. Patient has required IV potassium and oral potassium to supplement her deficiency. cutting back on her IV potassium, remains hypokaelmic, required multiple repat labs throughout the day to closely monitor her potassium. Rhabdomyolysis: Over 2k, increased IVF to 250. added potassium to the IVF. will continue to monitor. #hypercapnia/ metabolic alkalosis CO2 >45 on admission CMP 2/2 hypokalemia VBG - 7.49/63/48 anticipate to improve with K+ repletion repeat VBG with AM labs #Transaminitis AST 170, ALT 133 Alk phos and bilirubin WNL Denies abdominal pain #HTN Continue amlodipine and lisinopril Holding chlorthalidone as electrolyte abnormalities above Would consider further workup as to secondary causes of hypertension in outpatient setting if hyperaldosteronism is negative. #Anxiety Continue amitriptyline VTE ppx: SCDs - low risk and able to ambulate Diet: Regular Dispo: PCU Admission and Anticipated Discharge Date Admission Date: October 07, 2024 Subjective Patient reports her pain is better. SHe has no sigificat complaints. Physical Exam Constitutional: WD/WN, vitals as above Respiratory: not using accessory muscles to breath. Musculoskeletal: no cyanosis or clubbing, extremities motor strength 5/5 Results & Data Results & Data Vital Signs (Past 12 Hours) Vital Signs Temp Pulse Resp BP Pulse Ox O2 Del Method 10/09/24 23:19 36.5 C 58 L 14 133/76 98 Room Air 10/09/24 19:25 36.7 C 57 L 154/67 H 16 L Room Air 10/09/24 15:31 36.3 C L 61 18 155/84 H 99 Room Air 10/09/24 11:27 36.5 C 67 18 157/76 H 99 Room Air PG Care Time/CCT Total # of Minutes Spent Total Time Spent with Patient: Total time spent is greater than 50% in coordination of care (as documented) at patient's floor/unit and/or counseling patient: Coding Level of Care Code 67505 SUB INP/OBS CARE 3/50MIN Diagnoses Hypokalemia E87.6 Hypercapnia R06.89 Transaminitis R74.01 Hypertension I10 Anxiety F41.9 Metabolic alkalosis E87.3
[2024-10-10 03:38] VITALS: RESP 18
[2024-10-10 07:01] LABS: Albumin Globulin Ratio 2.2 (0.9-2); BUN Creatinine Ratio 21.3 (10-20); Bilirubin,Total 0.7 mg/dl (0.2-1.0); Calcium 9.2 mg/dl (8.6-10.3); Creatinine Clr Calc Pharmacy 119.2 ml/min; Globulin 1.8 gm/dl (2.5-4.0); Magnesium 1.8 mg/dl (1.7-2.4); Phosphorus 2.2 mg/dl (2.5-4.9); Potassium 3.8 mmol/L (3.5-5.1); Total Protein 5.8 gm/dl (6.0-8.3)
[2024-10-10 07:35] VITALS: BP 144/80; TEMP 98.4; O2SAT 99
[2024-10-10 10:22] VITALS: PULSE 60
--- NOTE | 2024-10-11 13:37 | Discharge Summary ---
Discharge Summary Date of Service October 10, 2024 Principal Dx & Hospital Course #1 = Principal Diagnosis (1) Hypokalemia: (2) Hypercapnia: (3) Transaminitis: (4) Hypertension: (5) Anxiety: (6) Metabolic alkalosis: Plan Patient is a 58-year-old female with a past medical history of hypertension, anxiety, depression. She was referred by her doctor after her blood work showed a low potassium of 2.4. She is being admitted for hypokalemia secondary to diuretic use; labs also showed hypercapnia, VBG ordered on admission. #hypokalemia 2/2 Chlorthalidone use K+ 2.4 on admission Mg 2.2, TSH WNL, renal function stable EKG showed t wave inversions in all leads - troponin negative Patient was severely hypokalemic when she arrived, likely secondary to probably hyperaldosteronism as well as chlorthalidone use. will hold chlorthalidone moving forward As concern this is due to hyperaldosteronism: labs are sent outs and are pending. Patient has required IV potassium and oral potassium to supplement her deficiency. Patient required 20 infusions of 10 meq of IV potassium in addition to PO potassium. Will discharge on potassium with frequent lab tests drawn tomorrow and friday. Rhabdomyolysis: Initially over 2k, improved with aggressive IV diuresis. This was likely secondary to her severe hypokaelmia. #hypercapnia/ metabolic alkalosis CO2 >45 on admission CMP 2/2 hypokalemia VBG - 7.49/63/48 resolved. #Transaminitis AST 170, ALT 133 Alk phos and bilirubin WNL Denies abdominal pain likely secondary to rhabdomyolysis #HTN Continue amlodipine and lisinopril Holding chlorthalidone as electrolyte abnormalities above Would consider further workup as to secondary causes of hypertension in outpatient setting if hyperaldosteronism is negative. #Anxiety Continue amitriptyline Admission HPI Per Admitting Provider Patient is a 58-year-old female with a past medical history of hypertension, anxiety, depression. She was referred by her doctor after her blood work showed a low potassium of 2.4. She is being admitted for hypokalemia; labs also showed hypercapnia, VBG ordered on admission. Patient seen at bedside with her present who is a physician for the residency program in [place]. She stated she has had muscle cramps for approximately a week states she had blood work done with her PCP yesterday which showed hypokalemia. She immediately came into the ER when she received a phone call from the lab at 4 AM this morning. Patient denies dizziness, lightheadedness, dyspnea, chest pain, palpitations, abdominal pain, nausea, vomiting, diarrhea, numbness, tingling. She has been receiving treatment for high blood pressure since the fall, seems to be uncontrolled and not on responsive to multiple medications. Patient is currently on amlodipine, lisinopril, and started chlorthalidone in June. She has not undergone any further workup as to secondary causes of hypertension. She does not use nicotine products or drink alcohol. She denies past history of cancer, diabetes, previous VTE. She did not take her home medications prior to arrival; ordered on admission. She wishes to be full code at this time. Discharge Exam Constitutional: WD/WN, vitals as above Respiratory: not using accessory muscles to breath. Musculoskeletal: no cyanosis or clubbing, extremities motor strength 5/5, no tenderness on calf. Discharge Plan Discharge Items Patient Disposition: Home - Self-Care Reason For Visit: HYPOKALEMIA Discharge Diagnosis: hypokalemia Activity: Resume your previous activity Non-emergency contact: Primary Care Provider Call non-emergency contact if: you have any medication questions Follow-up/Referrals: Joo Mcgovern [Primary Care Provider] - (Called Dr. Mcgovern's office. Pt already scheduled) Diet: Regular Ambulatory Orders: Basic Metabolic Panel (Routine) Timeframe: 2 Days Location: Determined by Patient Ordered By: Kp Cast Basic Metabolic Panel (Routine) Timeframe: 1 Day Location: Determined by Patient Ordered By: Kp Helm Attending Provider Instructions: Recommend close followup with potassium. Pending Studies at Discharge: No Stand-Alone Forms: [employer], Smoking Cessation Medications and DC Order Prescriptions: New potassium chloride 20 mEq Tablet,Er Particles/Crystals 40 meq PO BID Qty: 6 0RF Rx Instructions: Take 2 more doses today and ongoing. Continued [id number]-yfopvvs-lutein 0.4-162-18 mg Tablet 1 tab PO QAM escitalopram oxalate [Lexapro] 20 mg Tablet 20 mg PO QAM amitriptyline 10 mg Tablet 20 mg PO HS tretinoin 0.025 % cream See Rx Instructions .ROUTE .COMPLEX Rx Instructions: APPLY TOPICALLY TO CLEAN DRY SKIN NIGHTLY on Friday, Friday and Friday. amlodipine 5 mg tablet 5 mg PO DAILY lisinopril 30 mg tablet 30 mg PO DAILY gabapentin 300 mg capsule 600 mg PO BID Discontinued chlorthalidone 25 mg tablet 25 mg PO DAILY Discharge Orders: Discharge Order (Routine); Ordered 10/10/24 Ordered By: Kp Marshall/Other Patient Handouts: Rhabdomyolysis, Hypokalemia Dc Admission Data Admit Date/Time: 10/07/24 08:57 Attending Provider: Kp Cast Admit Provider: Kp Cast Primary Care Provider: Joo Mcgovern Other Providers: Kp Cast Other Interventions: Discharge Summary Assessment (RN) Last Done: 10/10/24 10:22 Hospital Stay Data Consultations 10/07/24 08:09 ED Decision to Admit Stat Pending Results Patient Have Any Pending Studies at Discharge: No Discharge Instructions Given to Patient (Per Discharging Provider) Recommend close followup with potassium. Total Time Total Time Spent Total Time Spent (In Minutes): 35 Coding Level of Care Code 19681 INP/OBS DISCH >30 MIN Diagnoses Hypokalemia E87.6 Hypercapnia R06.89 Transaminitis R74.01 Hypertension I10 Anxiety F41.9 Metabolic alkalosis E87.3
== END 2024-10-10 10:51 | disposition home or self-care (01) | DRG 641 ==
LOC: ED 05:41 → 2S 08:57